=== PATIENT | female | born 1965 | race Caucasian/White ===

== ENCOUNTER → 2016-11-17 | Outpatient (CLI) | payer OTHER ==
--- NOTE | 2016-11-18 07:12 | MM ---
Reason for exam: additional evaluation requested from prior study. Last mammogram was performed 1 year ago. History: Patient had first child at age 37. Family history of breast cancer in aunt at age 60. Left U/S Cancelled VAD Biopsy of both breasts, June 09, 2013. Cyst aspiration, May 2012. Benign cyst aspiration of the left breast, March 2012. Benign cyst aspiration of the left breast, May 2011. Physical Findings: Nurse Summary: 3cm nodule in the right breast at 9-12 o'clock and a 3cm nodule in the left breast at 12-3 o'clock (nurse mm). MG 3D Diag Mammo W/Cad SHON Bilateral CC and MLO view(s) were taken. Prior study comparison: November 11, 2015, bilateral MG 3d screening mammo w/cad. September 26, 2014, bilateral MG diagnostic mammo w CAD SHON. The breast tissue is extremely dense which could obscure a lesion on mammography. No suspicious calcifications are seen. Waxing and waning cysts seen bilateral. These results were verbally communicated with the patient and result sheet given to the patient on 11/17/16. ASSESSMENT: Benign, BI-RAD 2 RECOMMENDATION: Routine screening mammogram of both breasts in 1 year. Manage patient on a clinical basis.
== END | disposition home or self-care (01) ==
LOC: RADMAMWWP 15:32
PROVIDERS: ATTEND Surgery
DX: R92.8 Other abnormal and inconclusive findings on diagnostic imaging of breast (principal)
CPT/HCPCS: G0204; G0279

== ENCOUNTER → 2017-12-15 | Outpatient (CLI) | payer BC ==
[2017-12-15 11:45] VITALS: BP 141/92; PULSE 68; RESP 16
--- NOTE | 2017-12-16 07:40 | P.PN ---
Subjective Progress Note Date: 12/15/17 This is 52 years old female, with a history of severe neck pain with radiation to the right upper extremity, started October 2017, without any initiating event, the pain is constant and increases with any activity or neck movement, associated with numbness and tingling sensation in the right upper extremities, she was seen by her primary care , and she was started on Medrol pack, and baclofen 10 mg 3 times a day, naproxen to 220 mg twice a day, she continued to have severe neck pain with radiation into the right upper extremity, he denies any motor or sensory deficits, she denies any fever or night sweats, she denies any change in bowel movements or urination, patient had similar episode of pain and numbness in the upper extremity 2 years ago, and we have done cervical epidural steroid injection and she had excellent pain relief until october 2017 Objective - Vital Signs Vital signs: Vital Signs Temp Pulse 68 12/15/17 11:31 Resp 16 12/15/17 11:31 BP 141/92 12/15/17 11:31 Pulse Ox 99 12/15/17 11:31 Intake & Output 12/15/17 12/16/17 12/16/17 18:59 06:59 18:59 Weight 58.967 kg - Exam Physical Examinations : 1-Constitutiona : Cooperative , not in acute distress . 2-HEENT : nech ; supple , no Lymphadenopathy , normal thyroid size . eyes : no ptosis , no icterus, no photophobia . 3- neurologic : Cranial nerve II to XII intact , no focal neurological deffecit . 4-psychatric : alert , oriented X 3 , appropriate affect , intact judgment and insight . 5-Lymphatic : no Lymphadenopathy . 6- musculoskeltal : cervical spine = motor stregnth in the deltoid and biceps, motor stregnth biceps and the wrist extensors (C6) . motor stregnth in the triceps muscle . deep tendon reflexes normal at the biceps , normal at Brachioradialis , normal at the Triceps positive cervical facet loading test Normal sensation in the upper extremities Multiple trigger points identified in the right side cervical area. , Lumber spine = normal moter stegnth lower extremities ,thigh and legs .5/5 Assessment and Plan Assessment: Assessment and plan=1-cervical radiculopathy, 2-cervical degenerative disc disease 3-myofascial pain syndrome and cervical paravertebral muscles. Patient could benefit from cervical epidural steroid injections under fluoroscopy guidance and the same time we could do also trigger point injections, procedure risk and benefits and alternatives discussed with the patient, and she agreed with the preceding, patient should continue her current medication naproxen and baclofen and she is getting prescription refills from her primary care. Time with Patient: Less than 30
== END | disposition home or self-care (01) ==
LOC: PNWHC3 11:22
PROVIDERS: ATTEND Specialist
DX: M50.10 Cervical disc disorder with radiculopathy, unspecified cervical region (principal); M79.1 Myalgia; Z79.1 Long term (current) use of non-steroidal anti-inflammatories (NSAID); Z79.899 Other long term (current) drug therapy
CPT/HCPCS: 99211

== ENCOUNTER 2017-12-29 07:09 | Day surgery (SDC) | payer BC ==
[2017-12-28 08:43] VITALS: BMI 23.6
[~2017-12-29 07:09] MED LIST: LACTATED RINGERS 1,000 ML IV SCH
[2017-12-29 07:39] VITALS: RESP 18; TEMP 99.2
[2017-12-29] MEDS ORDERED: LIDOCAINE 1% 20 ML VIAL (10MG/ML) FOR IV START INTRADERMA ONE (07:40)
[2017-12-29] MEDS ORDERED: LACTATED RINGERS 1,000 ML IV ONE (07:40)
--- NOTE | 2017-12-29 08:27 | P.PCN ---
Date of Procedure: 12/29/17 Preoperative Diagnosis: Right cervical radiculopathy Postoperative Diagnosis: Same as above Procedure(s) Performed: Cervical epidural steroid injection under fluoroscopic guidance Anesthesia: MAC ( Local with IV moderate conscious sedation) Surgeon: Nikole Wild Description of Procedure: PROCEDURE INDICATION: The patient with neck pain and radiculitis unresponsive to conservative treatment consents for procedure. PROCEDURE DESCRIPTION / TECHNIQUE: The patient was seen and identified in the preoperative area. Risks, benefits, complications, including but not limited to infections ,bleeding , allergic reactions to the medications ,and not coplete pain releife, and alternatives were discussed with the patient, the patient agreed to proceed with the procedure and signed the consent. Patient was taken to the OR and time out was completed. The patient was placed in the prone position on the procedure table. A pillow was placed under the patients chest to increase the flexion of the cervical spine . The cervical area was prepped and draped in the usual sterile fashion. Vital signs were closely monitored during the procedure. Conscious sedation was used during the procedure to decrease patients anxiety. Using anterior-posterior fluoroscopy, the C7-T1 interlaminar space was identified and the skin over this site was marked and then infiltrated with 1% lidocaine subcutaneously. Subsequently, a 20-gauge 3-1/2-inch Tuohy epidural needle was inserted and advanced toward the epidural space in the right paramedian approach by means of loss of resistance to air technique and guided by AP and lateral fluoroscopy. The correct needle position in the epidural space was verified with the injection of 1 mL of the water soluble contrast dye Isovue-180 and observing an excellent epidurogram with the epidural spread of the dye, after negative aspiration for blood and CSF and in the absence of paresthesias. Again after negative aspiration, a 4 ml mixture containing 10 mg of Decadron and 3 ml of preservative free Normal Saline solution was injected and a washout of epidurogram was seen. Needle was withdrawn intact, skin was cleansed, and bandages were applied.
[2017-12-29] MEDS ORDERED: IV FLUID CONTINUATION 1,000 ML IV ONE (08:31)
[2017-12-29] MEDS ORDERED: KETOROLAC 30 MG/ML 1 ML VIAL IVP STA (08:46)
--- NOTE | 2017-12-29 09:03 | FL ---
Fluoroscopy HISTORY: Pain 7 seconds fluoroscopy time supplied to the referring clinician. 1 intraoperative C-arm image documen ts the procedure. See dictated report from anesthesia.
[2017-12-29 09:19] VITALS: BP 112/67; PULSE 60
== END 2017-12-29 09:33 | disposition home or self-care (01) ==
LOC: ORPAIN 07:09
PROVIDERS: ATTEND Anesthesiology
DX: M50.10 Cervical disc disorder with radiculopathy, unspecified cervical region (principal); M79.1 Myalgia; Z79.1 Long term (current) use of non-steroidal anti-inflammatories (NSAID); Z79.52 Long term (current) use of systemic steroids; Z79.899 Other long term (current) drug therapy
CPT/HCPCS: 62321; 81025

== ENCOUNTER 2018-01-26 06:10 | Day surgery (SDC) | payer BC ==
[2018-01-25 08:38] VITALS: BMI 23.6
[2018-01-26] MEDS ORDERED: LACTATED RINGERS 1,000 ML IV ONE ×3 (06:54→08:02)
[2018-01-26] MEDS ORDERED: LIDOCAINE 1% 20 ML VIAL (10MG/ML) FOR IV START INTRADERMA ONE (06:54)
[2018-01-26] MEDS ORDERED: LACTATED RINGERS 1,000 ML IV SCH (07:00)
[2018-01-26 07:04] VITALS: TEMP 98
--- NOTE | 2018-01-26 08:02 | FL ---
EXAMINATION TYPE: FL guided pain mgmt statistic DATE OF EXAM: 01/26/2018 HISTORY: Pain 4sec fluoro time,1 image scanned
[2018-01-26 08:18] VITALS: PULSE 80
[2018-01-26 08:30] VITALS: BP 120/70; RESP 18
--- NOTE | 2018-01-26 11:31 | P.PCN ---
Date of Procedure: 01/26/18 Procedure(s) Performed: . PROCEDURE 1. Cervical epidural steroid injection under fluoroscopic guidance, C7-T1 2. Cervical epidurogram. 3. Trigger point injection in the cervical paravertebral muscles total of 4 trigger points injected on the right side cervical paravertebral muscles PREOPERATIVE DIAGNOSIS: 1- Cervical Degenerative Disc Diseases 2- Cervical radiculopathy., 3-myofascial pain syndrome and cervical area POSTOPERATIVE DIAGNOSIS: : 1- Cervical Degenerative Disc Diseases , 2- Cervical radiculopathy. 3-myofascial pain syndrome and cervical area ANESTHESIA: Local anesthesia with 1% lidocaine 2 ml , and IV sedation with Versed 2 mg and Fentanyl 100 mcg. EBL 0 PROCEDURE INDICATION: The patient with neck pain and radiculitis unresponsive to conservative treatment consents for procedure. PROCEDURE DESCRIPTION / TECHNIQUE: The patient was seen and identified in the preoperative area. Risks, benefits, complications, including but not limited to infections ,bleeding , allergic reactions to the medications ,and not complete pain releife, and alternatives were discussed with the patient, the patient agreed to proceed with the procedure and signed the consent. Patient was taken to the OR and time out was completed. The patient was placed in the prone position on the procedure table. A pillow was placed under the patients chest to increase the cervical interlaminar space. The cervical area was prepped and draped in the usual sterile fashion. Vital signs were closely monitored during the procedure. Conscious sedation was used during the procedure to decrease patients anxiety. Using anterior-posterior fluoroscopy, the C7-T1 interlaminar space was identified and the skin over this site was marked and then infiltrated with 1% lidocaine subcutaneously. Subsequently, a 20-gauge 3-1/2-inch Tuohy epidural needle was inserted and advanced toward the epidural space by means of the `` hanging-drop technique and guided by AP and lateral fluoroscopy. The correct needle position in the epidural space was verified with the injection of 2 mL of the water soluble contrast dye Isovue-200 and observing an excellent epidurogram with the epidural spread of the dye, after negative aspiration for blood and CSF and in the absence of paresthesias. Again after negative aspiration, mixture containing 20 mg Dexamethasone and 2 ml of preservative- free normal saline injected and a washout of epidurogram was seen. Needle was withdrawn intact, Then after that the trigger point which was marked in the preop holding area , each of the trigger point injected with Marcaine 0.5% using 25 gauge needle , injections and after negative aspiration and there was no paresthesia during the injection , total of 4 trigger points injected in the right side cervical paravertebral muscles ,then after that the skin was cleansed, and bandages were applied. Complications= none. Disposition= patient was placed in supine position and transferred to the recovery room area in stable condition and there was no evidence of upper or lower extremity motor or sensory deficit after the procedure patient was discharged from recovery room after discharge criteria met and home discharge instructions was given by the staff and patient will follow with the pain clinic in 2-4 weeks
== END 2018-01-26 08:46 | disposition home or self-care (01) ==
LOC: ORPAIN 06:10
PROVIDERS: ATTEND Specialist
DX: M50.13 Cervical disc disorder with radiculopathy, cervicothoracic region (principal); M79.1 Myalgia; J45.909 Unspecified asthma, uncomplicated; E07.9 Disorder of thyroid, unspecified
CPT/HCPCS: 81025; 62321; 20553; J2250; J1100; J3010; Q9966; 99152

== ENCOUNTER → 2018-02-22 | Outpatient (CLI) | payer BC ==
--- NOTE | 2018-02-23 11:59 | MM ---
Reason for exam: screening (asymptomatic). Last mammogram was performed 1 year and 3 months ago. History: Patient had first child at age 37. Family history of breast cancer in aunt at age 60. Left U/S Cancelled VAD Biopsy of both breasts, June 09, 2013. Cyst aspiration, May 2012. Benign cyst aspiration of the left breast, March 2012. Benign cyst aspiration of the left breast, May 2011. Physical Findings: A clinical breast exam by your physician is recommended on an annual basis and results should be correlated with mammographic findings. MG 3D Screening Mammo W/Cad Bilateral CC and MLO view(s) were taken. Prior study comparison: November 17, 2016, bilateral MG 3d diag mammo w/cad SHON. November 11, 2015, bilateral MG 3d screening mammo w/cad. The breast tissue is extremely dense which could obscure a lesion on mammography. Finding: There are multiple typically benign circumscribed round, oval masses waxing and waning over priors most compatible with benign cysts. No suspicious abnormality. ASSESSMENT: Benign, BI-RAD 2 RECOMMENDATION: Routine screening mammogram of both breasts in 1 year.
== END | disposition home or self-care (01) ==
LOC: RADMAMWWP 06:53
PROVIDERS: ATTEND Obstetrics & Gynecology
DX: Z12.31 Encounter for screening mammogram for malignant neoplasm of breast (principal)
CPT/HCPCS: 77063; 77067

== ENCOUNTER → 2018-02-25 | Outpatient (CLI) | payer BC ==
[2018-02-25 08:08] LABS: Basophils % (A) 1 %; Eosinophils # (A) 0.1 k/uL (0-0.7); Eosinophils % (A) 2 %; HGB 14.7 gm/dL (11.4-16.0); Lymphocytes % (A) 31 %; MCH 28.1 pg (25.0-35.0); MCV 87.9 fL (80.0-100.0); Mean Platelet Volume 8.2; Monocytes # (A) 0.4 k/uL (0-1.0); Monocytes % (A) 7 %; Neutrophils # (A) 3.6 k/uL (1.3-7.7); Neutrophils % (A) 57 %; Platelet Count 225 k/uL (150-450); RBC 5.24 m/uL (3.80-5.40); RDW 12.8 % (11.5-15.5); WBC 6.4 k/uL (3.8-10.6)
[2018-02-25 08:15] LABS: ALT 25 U/L (9-52); AST 16 U/L (14-36); Albumin 4.4 g/dL (3.5-5.0); Alkaline Phosphatase 67 U/L (38-126); Anion Gap 13 mmol/L; Blood Urea Nitrogen 21 mg/dL (7-17); Calcium 9.6 mg/dL (8.4-10.2); Carbon Dioxide 25 mmol/L (22-30); Chloride 103 mmol/L (98-107); Cholesterol 175 mg/dL (<200); Glucose 96 mg/dL (74-99); HDL Cholesterol 79 mg/dL (40-60); LDL Cholesterol,Calculated 85 mg/dL (0-99); Potassium 4.2 mmol/L (3.5-5.1); Sodium 141 mmol/L (137-145); Total Bilirubin 0.7 mg/dL (0.2-1.3); Total Protein 7.1 g/dL (6.3-8.2); Triglycerides 56 mg/dL (<150)
[2018-02-25 08:31] LABS: T4, Free (Free Thyroxine) 1.45 ng/dL (0.78-2.19)
== END | disposition home or self-care (01) ==
LOC: LABWHC1 07:55
PROVIDERS: ATTEND Internal Medicine
DX: Z00.00 Encounter for general adult medical examination without abnormal findings (principal); E03.9 Hypothyroidism, unspecified; Z13.220 Encounter for screening for lipoid disorders
CPT/HCPCS: 36415; 80053; 80061; 84439; 84443; 85025

== ENCOUNTER → 2018-04-18 | Outpatient (CLI) | payer BC | END | disposition home or self-care (01) | LOC: LABWHC1 07:08 | PROVIDERS: ATTEND Internal Medicine | DX: E03.9 Hypothyroidism, unspecified (principal) | CPT/HCPCS: 36415; 84443 ==

== ENCOUNTER → 2019-01-16 | Outpatient (CLI) | payer BC ==
[2019-01-16 14:10] VITALS: BP 133/88; PULSE 93; RESP 16
--- NOTE | 2019-01-16 14:29 | P.PN ---
Progress Note - Text Progress Note Date: 01/16/19 Jazmine is a very pleasant 53-year-old female who presents for follow-up visit with chief complaint of neck pain and radiating pain into her upper extremities. She also has complaints of low back pain with radiating pain down the back of her right leg. She had epidural steroid injections of the cervical spine in the past with good relief. She's noticed return of her symptoms over the past 3-4 months. They're not as intense as before however she does complain of radiating pain from her neck into her right arm in her triceps area as well as into her fingers intermittently. She denies any significant motor deficits in upper extremities. She denies any ambulatory issues. With regards to her low back pain, she has noted pain down the back of her right leg for some time now. Does not recall any inciting incident. Pain is a 6 out of 10 in severity she d escribes frequent radiating pain down her right buttock and back of her calf muscle. She's noticed some weakness in her right lower extremity over the past 6 months. She denies any bowel or bladder incontinence. In addition to above, 13-point review of systems is also negative for chest pain, shortness of breath, changes in vision, changes in hearing, new onset weakness, abdominal pain, diarrhea, extreme fatigue, malaise, fever, skin changes, homicidal or suicidal ideation, or bowel or bladder incontinence. Vital Signs: Reviewed in EMR Gen: WDWN, AAOx3, NAD HEENT: NCAT, EOMI, hearing grossly normal Pulm: resp unlabored Abd: soft, NT, ND Neck: supple, trachea midline ROM in flexion lumbar spine: reducedSecondary to pain. ROM in extension lumbar spine: Pain with flexion Lumbar paravertebral tenderness: + Facet loading: + bilateral, R >> L SI joint tenderness: Negative bilaterally Moe's test: Negative bilaterally Straight leg raise: + + Right at 30 Neuro: CN II-XII grossly intact, muscle strength lower extremities PRESERVED Imaging: Reviewed in EMR Assessment: 1. Cervical radiculopathy 2. Cervical spondylosis without myelopathy 3. Lumbar spondylosis without myelopathy 4. Lumbar radiculopathy Plan: 1. Explanation: Opioid and psychological risk scores were reviewed. Diagnoses, prognoses, and multiple treatment options including but not limited to physical therapy, interventional therapies, adjuvant medical therapies, narcotic medication therapies, and surgery were discussed with the patient and all questions were answered to the patient's satisfaction. 2. Opioid agreement: Patient has previously signed narcotic agreement, and was orally counseled to not overuse, abuse, divert, or cell medications, and to take them as prescribed by only 1 healthcare provider. The patient was also counseled to store opioid medications in a safe and preferably locked location. Patient was also counseled against driving or operating heavy equipment while using narcotic medications and also to not use alcohol or any illicit or recreational drugs. The patient verbalized understanding that lack of compliance with any of the above and likely result in failure to renew narcotic prescriptions, possible discharge from the clinic, and possible legal ramifications thereafter if indicated. 3. Counseling: The patient was counseled extensively on exercise. Specifically, the patient was instructed regarding the importance of weight control, and exercise in the context of both chronic pain and overall health. 4. Procedures: Like to proceed with a cervical epidural steroid injection after reviewing the MRI. 5. Consultations: None for now, possible referral to an orthopedic forestry extension specialist in the future. 6. Investigations: MRI orders given. 7. Medications: No medications prescribed. 8. Disposition: MRI lumbar spine and cervical spine to assess for weakness in the upper and lower shoddy's. PQRS measures: 1-Patient's medications are documented in the chart. 2-Tobacco use is negative 3-Patient has not had a pneumococcal vaccine. 4-Advanced care planning discussed, patient unable to give. 5-Opioid contract signed with the patient. 6-Pain positive, follow-up visit or procedure scheduled 7-Patient's blood pressure measured and documented, and patient will follow up with the primary care due to hypertension. 8-Patient's weight was measured, and body mass index is within normal limits, and counseling was done. Patient instructed to follow up with PCP. 9-Patient WAS NOT identified as an unhealthy alcohol user.
== END | disposition home or self-care (01) ==
LOC: PNWHC3 12:20
PROVIDERS: ATTEND Anesthesiology
DX: M47.22 Other spondylosis with radiculopathy, cervical region (principal); M47.26 Other spondylosis with radiculopathy, lumbar region
CPT/HCPCS: 99211

== ENCOUNTER → 2019-02-13 | Outpatient (CLI) | payer BC ==
[2019-02-13 14:55] VITALS: BP 153/105; PULSE 72; RESP 16
--- NOTE | 2019-02-13 15:03 | P.PN ---
Subjective Progress Note Date: 02/13/19 Jazmine is a 54-year-old female presents today as a follow-up for neck and low back pain. Her last visit here she continues to complain of back pain in right sided low back pain with radicular symptoms down the legs. She continues to have right-sided radicular symptoms going down her right arm. The pain is associated with movements of the right neck. She has sharp shooting pain along with numbness down her right arm when she turns her head to the right or looks back. She has numbness in both arms mostly on the right when she wakes up in the morning. She reports that any elevation of the neck on any pillow increases her numbness and tingling down her arms. She denies any lower extremity weakne ss, she denies any bowel or bladder incontinence. She does have right-sided radicular symptoms in her low lumbar spine shooting down the back of her leg to about the back of the knee. She is not using any scheduled medications at this time. Objective - Exam General: Awake and alert oriented 3 no distress Respiratory exam: No audible wheezing no accessory muscle usage Cardiovascular exam: regular rate, palpable bilateral pulses, no lower extremity edema Abdominal exam: No distention nontender to palpation Cervical spine: Normal alignment, tender to palpation over the right paraspinal muscles. Spurling's is positive on the right. Facet loading is negative. Checkroom Chief strength is 4-5 in the right compared to 5 out of 5 on the left. Pincer grasp is normal bilaterally. There is weakness in the medial 2 fingers compared to the lateral 3 fingers correlating to a C7 or C8 radiculopathy. Lumbar spine: Lumbar lordosis is preserved. There is nontender to palpation over the paraspinal muscles. Straight leg raise is positive on the right and above 45. Sacroiliac joints: Nontender to palpation, VIVIANA is negative, Gaenselon negative Neuro exam: Normal sensation in bilateral upper extremities, deep tendon reflexes are 1+ on the right compared to 2+ on the left. Moreno's is negative on both arms Normal sensation in bilateral lower extremities. Deep tendon reflexes are 2+ in lower extremities Psych exam: Cooperative, appropriate mood Assessment and Plan Assessment: #1 cervical spondylosis without myelopathy #2 cervical radiculopathy #3 lumbar radiculopathy Plan: After examination of the patient and discussion with the patient she prefers not to have the MRI done at this time. After examining the patient and her Viviane's is negative and I'm not really concerned of over spinal cord compression. MRI would be helpful if available. I do not believe that it is necessary prior to proceeding to a cervical epidural at this time. She has classic cervical radiculopathy likely at the C7 and C8 dermatomes. At this point I believe proceeding with cervical epidural at the C7-T1 level with paraspinal trigger points on the right side may offer the best relief. I discussed with patient the reasoning behind this and she is in complete agreement. She really does not want to have an MRI done at this time. We'll schedule for cervical epidural steroid injection and trigger point injections as possible after we do this we will follow-up with her regarding her low back pain and right lower extremity radiculopathy
== END ==
LOC: PNWHC3 14:27
PROVIDERS: ATTEND Hospitalist
DX: M47.22 Other spondylosis with radiculopathy, cervical region (principal)
CPT/HCPCS: 99211

== ENCOUNTER → 2019-02-23 | Outpatient (CLI) | payer BC ==
--- NOTE | 2019-02-24 13:27 | MM ---
Reason for exam: screening (asymptomatic). Last mammogram was performed 1 year ago. History: Patient had first child at age 37. Family history of breast cancer in aunt at age 60. Left U/S Cancelled VAD Biopsy of both breasts, June 09, 2013. Cyst aspiration, May 2012. Benign cyst aspiration of the left breast, March 2012. Benign cyst aspiration of the left breast, May 2011. Physical Findings: A clinical breast exam by your physician is recommended on an annual basis and results should be correlated with mammographic findings. MG 3D Screening Mammo W/Cad Bilateral CC and MLO view(s) were taken. Prior study comparison: February 22, 2018, bilateral MG 3d screening mammo w/cad. November 17, 2016, bilateral MG 3d diag mammo w/cad SHON. The breast tissue is extremely dense which could obscure a lesion on mammography. Stable benign calcifications. There is chronic nodularity bilaterally. There is no dominant lesion. No significant changes when compared with prior studies. ASSESSMENT: Benign, BI-RAD 2 RECOMMENDATION: Routine screening mammogram of both breasts in 1 year.
== END | disposition home or self-care (01) ==
LOC: RADMAMWWP 07:16
PROVIDERS: ATTEND Obstetrics & Gynecology
DX: Z12.31 Encounter for screening mammogram for malignant neoplasm of breast (principal)
CPT/HCPCS: 77063; 77067

== ENCOUNTER 2019-03-06 06:48 | Day surgery (SDC) | payer BC ==
[2019-03-02 08:41] VITALS: BMI 24.5
[2019-03-06 07:21] VITALS: TEMP 98.5
[2019-03-06] MEDS ORDERED: LIDOCAINE 1% 20 ML VIAL (10MG/ML) FOR IV START INTRADERMA ONE (07:25)
--- NOTE | 2019-03-06 08:36 | P.PCN ---
Date of Procedure: 03/06/19 Procedure(s) Performed: Procedure= 1. Cervical epidural steroid injection under fluoroscopic guidance, C7-T1 2. Cervical epidurogram. 3. Trigger point injection in the cervical paravertebral muscles total of 2 trigger points injected on the right side trapezius and rhomboid muscles PREOPERATIVE DIAGNOSIS: 1- Cervical Degenerative Disc Diseases 2- Cervical radiculopathy., 3-myofascial pain syndrome and cervical area POSTOPERATIVE DIAGNOSIS: : 1- Cervical Degenerative Disc Diseases , 2- Cervical radiculopathy. 3-myofascial pain syndrome and cervical area ANESTHESIA: Local anesthesia with 1% lidocaine 2 ml , and IV sedation with Versed 1 mg and Fentanyl 50 mcg. EBL 0 PROCEDURE INDICATION: The patient with neck pain and radiculitis unresponsive to conservative treatment consents for procedure. PROCEDURE DESCRIPTION / TECHNIQUE: The patient was seen and identified in the preoperative area. Risks, benefits, complications, including but not limited to infections ,bleeding , allergic reactions to the medications ,and not complete pain releife, and alternatives were discussed with the patient, the patient agreed to proceed with the procedure and signed the consent. Patient was taken to the OR and time out was completed. The patient was placed in the prone position on the procedure table. A pillow was placed under the patients chest to increase the cervical interlaminar space. The cervical area was prepped and draped in the usual sterile fashion. Vital signs were closely monitored during the procedure. Conscious sedation was used during the procedure to decrease patients anxiety. Using anterior-posterior fluoroscopy, the C7-T1 interlaminar space was identified and the skin over this site was marked and then infiltrated with 1% lidocaine subcutaneously. Subsequently, a 20-gauge 3-1/2-inch Tuohy epidural needle was inserted and advanced toward the epidural space by means of the ``hanging-drop technique and guided by AP and lateral fluoroscopy. The correct needle position in the epidural space was verified with the injection of 2 mL of the water soluble contrast dye Isovue-200 and observing an excellent epidurogram with the epidural spread of the dye, after negative aspiration for blood and CSF and in the absence of paresthesias. Again after negative aspiration, mixture containing 20 mg Dexamethasone ,and 2 ml of preservative-free normal saline injected and a washout of epidurogram was seen. Needle was withdrawn intact, Then after that the trigger point which was marked in the preop holding area , each of the trigger point injected with Marcaine 0.5% using 25 gauge needle , injections and after negative aspiration and there was no paresthesia during the injection , total of 2 trigger points injected in the right side trapezius and rhomboid muscles ,then after that the skin was cleansed, and bandages were applied. Complications= none. Disposition= patient was placed in supine position and transferred to the recovery room area in stable condition and there was no evidence of upper or lower extremity motor or sensory deficit after the procedure patient was discharged from recovery room after discharge criteria met and home discharge instructions was given by the staff and patient will follow with the pain clinic in 2-4 weeks
[2019-03-06] MEDS ORDERED: IV FLUID CONTINUATION 650 ML IV ONE (08:42)
--- NOTE | 2019-03-06 08:46 | FL ---
EXAMINATION TYPE: FL guided pain mgmt statistic DATE OF EXAM: 03/06/2019 CLINICAL HISTORY: Neck pain. TECHNIQUE: Fluoroscopy. COMPARISON: None. FINDINGS: Fluoroscopic guidance was provided during pain relief procedure performed by Dr. St . A total of 3 seconds of fluoroscopic time was utilized during the procedure and single spot fluoro scopic intraoperative image is acquired. Single image acquired shows needle localization near cervic othoracic junction. IMPRESSION: As Above.
[2019-03-06 09:12] VITALS: BP 107/67; PULSE 74; RESP 18
== END 2019-03-06 09:19 | disposition home or self-care (01) ==
LOC: ORPAIN 06:48
PROVIDERS: ATTEND Specialist
DX: M50.10 Cervical disc disorder with radiculopathy, unspecified cervical region (principal); M79.18 Myalgia, other site; Z88.2 Allergy status to sulfonamides
CPT/HCPCS: 81025; 20552; 62321; J2250; J1100; J3010; Q9966

== ENCOUNTER 2019-03-30 06:24 | Day surgery (SDC) | payer BC ==
[2019-03-29 09:56] VITALS: BMI 24.7
[2019-03-30 06:48] VITALS: RESP 16; TEMP 98.4
[2019-03-30] MEDS ORDERED: LIDOCAINE 1% 20 ML VIAL (10MG/ML) FOR IV START INTRADERMA ONE (06:55)
[2019-03-30] MEDS ORDERED: IV FLUID CONTINUATION 1,000 ML IV ONE (08:02)
--- NOTE | 2019-03-30 08:03 | P.PCN ---
Date of Procedure: 03/30/19 Procedure(s) Performed: PROCEDURE 1. Cervical epidural steroid injection under fluoroscopic guidance, C7-T1 2. Cervical epidurogram. 3. Trigger point injections right side rhomboid muscles and suprascapular muscles (total of 2 trigger point injected ) PREOPERATIVE DIAGNOSIS: 1- Cervical Degenerative Disc Diseases 2- Cervical radiculopathy., 3-myofascial pain syndrome cervical paraspinal muscles and suprascapular muscles POSTOPERATIVE DIAGNOSIS: : 1- Cervical Degenerative Disc Diseases , 2- Cervical radiculopathy. 3-myofascial pain syndrome and cervical paraspinal muscles and suprascapular muscles ANESTHESIA: Moderate sedation with Versed 1 mg and Fentanyl 50 mcg. EBL 0 PROCEDURE INDICATION: The patient with neck pain and radiculitis unresponsive to conservative treatment consents for procedure. PROCEDURE DESCRIPTION / TECHNIQUE: The patient was seen and identified in the preoperative area. Risks, benefits, complications, including but not limited to infections ,bleeding , allergic reactions to the medications ,and not coplete pain releife, and alternatives were discussed with the patient, the patient agreed to proceed with the procedure and signed the consent. Patient was taken to the OR and time out was completed. The patient was placed in the prone position on the procedure table. A pillow was placed under the patients chest to increase the cervical interlaminar space. The cervical area was prepped and draped in the usual sterile fashion. Vital signs were closely monitored during the procedure. Conscious sedation was used during the procedure to decrease patients anxiety. Using anterior-posterior fluoroscopy, the C7-T1 interlaminar space was identified and the skin over this site was marked and then infiltrated with 1% lidocaine subcutaneously. Subsequently, a 20-gauge 3-1/2-inch Tuohy epidural needle was inserted and advanced toward the epidural space by means of the hanging-drop technique and guided by AP and lateral fluoroscopy. The correct needle position in the epidural space was verified with the injection of 2 mL of the water soluble contrast dye Isovue-180 and observing an excellent epidurogram with the epidural spread of the dye, after negative aspiration for blood and CSF and in the absence of paresthesias. Again after negative aspiration, a 4 ml mixture containing 20 mg Dexamethason , and 2 ml of 1% preservative-free lidocaine,the solution was injected and a washout of epidurogram was seen. Needle was withdrawn intact, Then after that the trigger point injection done in sterile technique,the trigger point was identified in the preoperative holding area on the right side rhomboid , and a right suprascapular muscles on the right , a 25-gauge needle the trigger point injected with Ropivacaine 0.5% 2 mL injected after aspiration and there was no paresthesia during the injection patient tolerated the procedure well without any complications skin was cleansed, and bandages were applied. Complications= none. Disposition= patient was placed in supine position and transferred to the [facility] room area in stable condition and there was no evidence of upper or lower extremity motor or sensory deficit after the procedure patient was discharged from recovery room after discharge criteria met and home discharge instructions was given by the staff and patient will follow with the pain clinic in 2-4 weeks
--- NOTE | 2019-03-30 08:07 | FL ---
EXAMINATION TYPE: FL guided pain mgmt statistic DATE OF EXAM: 03/30/2019 CLINICAL HISTORY: Neck pain. TECHNIQUE: Fluoroscopy. COMPARISON: None. FINDINGS: Fluoroscopic guidance was provided during pain relief procedure performed by Dr. St . A total of 4 seconds of fluoroscopic time was utilized during the procedure and 1 spot images are acquired. Images acquired shows needle localization of the cervical spine. IMPRESSION: As Above.
[2019-03-30] MEDS ORDERED: KETOROLAC 30 MG/ML 1 ML VIAL IVP ONE (08:21)
[2019-03-30 08:49] VITALS: BP 102/67; PULSE 58
== END 2019-03-30 09:08 | disposition home or self-care (01) ==
LOC: ORPAIN 06:24
PROVIDERS: ATTEND Specialist
DX: M50.10 Cervical disc disorder with radiculopathy, unspecified cervical region (principal); M79.18 Myalgia, other site; E03.9 Hypothyroidism, unspecified; Z88.2 Allergy status to sulfonamides
CPT/HCPCS: 81025; 20552; 62321; J2250; J1100; J3010; J1885; Q9966; 99152

== ENCOUNTER → 2019-04-24 | Outpatient (CLI) | payer BC ==
[2019-04-24 14:24] VITALS: BP 127/88; PULSE 76; RESP 16
== END ==
LOC: PNWHC3 14:08
PROVIDERS: ATTEND Specialist
DX: M48.02 Spinal stenosis, cervical region (principal); M54.12 Radiculopathy, cervical region; Z79.899 Other long term (current) drug therapy
CPT/HCPCS: 99211

== ENCOUNTER → 2019-04-24 | Outpatient (CLI) | payer BC ==
[2019-04-24 08:27] LABS: Basophils # (A) 0.1 k/uL (0-0.2); Basophils % (A) 1 %; Eosinophils # (A) 0.1 k/uL (0-0.7); Eosinophils % (A) 2 %; HCT 41.8 % (34.0-46.0); HGB 13.5 gm/dL (11.4-16.0); Lymphocytes # (A) 1.7 k/uL (1.0-4.8); Lymphocytes % (A) 31 %; MCH 27.9 pg (25.0-35.0); MCHC 32.2 g/dL (31.0-37.0); MCV 86.9 fL (80.0-100.0); Mean Platelet Volume 8.3; Monocytes # (A) 0.3 k/uL (0-1.0); Monocytes % (A) 5 %; Neutrophils # (A) 3.2 k/uL (1.3-7.7); Neutrophils % (A) 59 %; Platelet Count 203 k/uL (150-450); RBC 4.82 m/uL (3.80-5.40); RDW 13.8 % (11.5-15.5); WBC 5.5 k/uL (3.8-10.6)
--- NOTE | 2019-04-24 14:50 | P.PAINPG ---
Subjective Progress Note Date: 04/24/19 Jazmine is a 54-year-old female presents today as a follow-up for neck pain. Recently we have done cervical epidural steroid injections 2 She continues to have right-sided radicular symptoms going down her right arm. The pain is associated with movements of the right neck. She has sharp shooting pain along with numbness down her right arm when she turns her head . She has numbness in both arms mostly on the right when she wakes up in the morning. She reports that any elevation of the neck on any pillow increases her numbness and tingling down her arms. She denies any lower extremity weakness, she denies any bowel or bladder incontinence. She does have right-sided radicular symptoms in her low lumbar spine shooting down the back of her leg to about the back of the knee. Physical Examinations : -Constitutiona : Cooperative , not in acute distress . -HEENT : nech ; supple , no Lymphadenopathy , normal thyroid size . eyes : no ptosis , no icterus, no photophobia . ENT : normal of hearing , normal oropharynx , no Thrush . - Respiratory : Chest clear to auscultations Bilaterally , no wheezing , no Rhonchi . - Cardiovascula : regular rate and rhythem , S1 , S2 , no S3 , no S4. - Gastrointestina : abdomen soft no tenderness , bowel sounds , no organomegally . - Genitourinary : Defferred . - neurologic : Cranial nerve II to XII intact , no focal neurological deffecit . -psychatric : alert , oriented X 3 , appropriate affect , intact judgment and insight . -Lymphatic : no Lymphadenopathy . - musculoskeltal : Cervical Spine motor stregnth in the deltoid and biceps, normal right side , normal Left side motor stregnth biceps and the wrist extensors normal right side ,normal left side . motor stregnth in the triceps muscle . normal Right side , normal Left side deep tendon reflexes normal at the biceps , normal at Brachioradialis , normal at triceps. cervical facet loading test negative. Spurling test positive bilaterally. Neck distraction test positive bilaterally. Viviane sign positive bilaterally. Lumber spine moter stegnth lower extremities ,thigh and legs 5/5 Right side , 5/5 Left side MRI of the cervical spine done [address] [place] [address] showed C6 7 and C7-T1 right neuroforaminal narrowing Assessment and plan Cervical radiculopathy Cervical foraminal narrowing Patient continued to have severe neck pain with numbness and tingling sensation in the upper extremity after 2 lumbar epidural steroid injection We will order MRI of the cervical spine without contrast to evaluate if there is any progression of her disease, and also patient will be referred for consultation with a spine surgeon for evaluation for possible decompression Objective - Labs CBC & Chem 7: 04/24/19 08:00 PQRS Measure Charge Sheet Measure #130: Documentation of Current Meds in Medical Chart: Patient's medications documented in chart Measure #226: Tobacco Use: Screen & Cessation Intervention: Pt not a tobacco user Measure #111: Pneumonia Vaccination: Pneumococcal vaccine administered or previously received Measure #47: Advance Care Plan: Advance care planning discussed & documented, pt chose/unable to give Measure #412: Opioid Treatment Agreement: No documentation of signed opioid treatment agreement Measure #408: Opioid Therapy Follow-up Evaluation: Patient had NO f/u eval minimum every 3 months during opioid therapy Measure #317: Preventitive Care & Scrn High Bld Press & F/U: Normal blood pressure, f/u not required Measure #128: Body Mass Index (BMI) Screening & Follow-up: BMI documented within normal parameters Measure #131: Pain Assessment & Follow-up: Pain positive & plan documented, Follow-up scheduled Measure #431: Unhealthy Alcohol Use Preventative Care & Scrn: Patient not identified as an unhealthy alcohol user PQRS Narrative: Smoking Status Never smoker Hx Alcohol Use (MH) Yes: RARE Home Medications: Ambulatory Orders Ergocalciferol [Vitamin D2 (DRISDOL)] 50,000 unit PO Q14D 09/25/15 Levothyroxine Sodium [Synthroid] 125 mcg PO SUTU 09/25/15 Levothyroxine Sodium [Synthroid] 112 mcg PO MOWETHFRSA 10/08/15 Naproxen Sodium [Aleve] 220 mg PO BID PRN 12/15/17 Controlled Substance Measures - Controlled Substance Measures Is patient prescribed a controlled substance at discharge?: No
[2019-04-24 16:49] LABS: ALT 13 U/L (8-44); AST 20 U/L (13-35); African American GFR (CKD) 114.6 (60.0-200.0); Albumin/Globulin Ratio 1.79 (1.60-3.17); Alkaline Phosphatase 63 U/L (41-126); BUN/Creat Ratio 22.86 Ratio (12.00-20.00); Calcium 9.4 mg/dL (8.7-10.3); Carbon Dioxide 24.5 mmol/L (21.6-31.8); Chloride 110 mmol/L (96-109); Cholesterol 186 mg/dL (0-200); Globulin 2.4 g/dL (1.6-3.3); Glucose 89 mg/dL (70-110); Potassium 3.9 mmol/L (3.5-5.5); Sodium 141 mmol/L (135-145); Total Bilirubin 0.6 mg/dL (0.3-1.2); Total Protein 6.7 g/dL (6.2-8.2); Triglycerides <50.0 mg/dL (0.0-149.0); VLDL Calculation 9.98 mg/dL (5.00-40.00)
== END | disposition home or self-care (01) ==
LOC: LABWHC1 07:52
PROVIDERS: ATTEND Internal Medicine Geriatric Medicine
DX: E78.5 Hyperlipidemia, unspecified (principal); E03.9 Hypothyroidism, unspecified; R53.83 Other fatigue
CPT/HCPCS: 36415; 80053; 80061; 82306; 83036; 84439; 84443; 85025

== ENCOUNTER → 2019-05-08 | Outpatient (CLI) | payer BC ==
--- NOTE | 2019-05-08 17:28 | MR ---
EXAMINATION TYPE: MR cervical spine wo con DATE OF EXAM: 05/08/2019 COMPARISON: 10/11/2015 HISTORY: Pain and radiculopathy. TECHNIQUE: Multiplanar, multisequence images of the cervical spine were acquired. C2-C3: Disc desiccation. No disc herniation or canal stenosis. No foraminal encroachment C3-C4: Disc desiccation. No disc herniation or canal stenosis. No foraminal encroachment. C4-C5: Mild degenerative disc disease with central disc bulging and mild effacement of thecal sac. Th ere is facet arthropathy and uncovertebral joint particularly. There is mild right neural foraminal e ncroachment. No nerve root contact identified. C5-C6: Moderate to severe degenerative disc disease with posterior spondylosis, uncovertebral joint h ypertrophy and broad-based disc protrusion. There is severe bilateral foraminal encroachment greater on the right. There is stable mild central canal stenosis. C6-C7: Vertebral body hemangioma C7 with moderate to severe degenerative disc disease. There is a foc al right paracentral disc herniation which abuts the anterior margin the spinal cord and extends para centrally and laterally to the right. There is mild right-sided foraminal encroachment. This is stabl e. C7-T1: Degenerative disc disease. Vertebral body hemangioma of T1. There is uncovertebral joint hyper trophy bilaterally. Right lateral disc bulging is seen on the sagittal image. This may encroach upon the exiting right nerve root. No Canal stenosis. Cervical segments are intact. There is normal alignment. Cervical spinal cord is of normal signal. Craniovertebral junction relationships are within normal limits. IMPRESSION: 1. Multilevel degenerative disc disease with severe changes C5-6 and C6-C7 appears stable. 2. Right paracentral disc herniation C6-C7 abuts the anterior margin of the spinal cord and results i n mild right foraminal encroachment. Findings stable. 3. Central disc protrusion or broad-based herniation C5-C6 abuts the anterior margin of the spinal co rd. Hypertrophic spondylosis contributes to severe bilateral foraminal encroachment greater on the ri ght. 4. Right lateral disc bulging C7-T1 results in right-sided foraminal encroachment and may abut the ex iting nerve root. Findings stable.
== END | disposition home or self-care (01) ==
LOC: RADMRIMAIN 16:34
PROVIDERS: ATTEND Specialist
DX: M50.223 Other cervical disc displacement at C6-C7 level (principal); M50.122 Cervical disc disorder at C5-C6 level with radiculopathy; M50.123 Cervical disc disorder at C6-C7 level with radiculopathy; M50.13 Cervical disc disorder with radiculopathy, cervicothoracic region; M47.812 Spondylosis without myelopathy or radiculopathy, cervical region
CPT/HCPCS: 72141

== ENCOUNTER → 2020-04-15 | Outpatient (CLI) | payer BC ==
--- NOTE | 2020-04-16 13:31 | MM ---
Reason for exam: screening (asymptomatic). Last mammogram was performed 1 year and 2 months ago. History: Patient had first child at age 37. Family history of breast cancer in aunt at age 60. Left U/S Cancelled VAD Biopsy of both breasts, June 09, 2013. Cyst aspiration, May 2012. Benign cyst aspiration of the left breast, March 2012. Benign cyst aspiration of the left breast, May 2011. Physical Findings: A clinical breast exam by your physician is recommended on an annual basis and results should be correlated with mammographic findings. MG 3D Screening Mammo W/Cad Bilateral CC and MLO view(s) were taken. Prior study comparison: February 23, 2019, bilateral MG 3d screening mammo w/cad. February 22, 2018, bilateral MG 3d screening mammo w/cad. The breast tissue is extremely dense which could obscure a lesion on mammography. No significant changes when compared with prior studies. ASSESSMENT: Benign, BI-RAD 2 RECOMMENDATION: Routine screening mammogram of both breasts in 1 year.
== END | disposition home or self-care (01) ==
LOC: RADMAMWWP 07:14
PROVIDERS: ATTEND Obstetrics & Gynecology
DX: Z12.31 Encounter for screening mammogram for malignant neoplasm of breast (principal)
CPT/HCPCS: 77063; 77067

== ENCOUNTER → 2020-12-23 | Outpatient (CLI) | payer BC ==
--- NOTE | 2020-12-23 15:48 | BD ---
EXAMINATION TYPE: Axial Bone Density DATE OF EXAM: 12/23/2020 COMPARISON: NONE CLINICAL HISTORY: Height: 61 IN Weight: 132 LBS RISK FACTORS HISTORY OF: History of Wrist Fracture: YES RIGHT AGE 11 Surgery to Spine: CERVICAL FUSION 2018 Family History of Osteoporosis: YES MOTHER Active: YES Diet low in dairy products/other sources of calcium: YES MEDICATIONS: Thyroid Medications: YES Which medication: Synthroid How Lon YEARS Additional Medications: VIT D 50,000 EVERY TWO WEEKS, SYNTHROID, AMLODIPINE, EXAM MEASUREMENTS: Bone mineral densitometry was performed using the [employer] [facility] System. Bone mineral density as measured about the Lumbar spine is: ----- L1-L4(G/cm2): 1.181 T Score Values are as follows: ----- L2: -0.3 ----- L3: 0.0 ----- L4: 0.7 ----- L1-L4: 0.0 Bone mineral density BASELINE Bone mineral density about the R hip (g/cm2): 0.897 Bone mineral density about the L hip (g/cm2): 0.956 T Score values are as follows: -----R Neck: -1.0 -----L Neck: -0.6 -----R Total: -0.3 -----L Total: -0.3 Bone mineral density BASELINE IMPRESSION: Normal (Values between +1 and -1 indicate normal bone mass). Consider repeating this study in 5 year s or sooner if there is some new clinical indication. NOTE: T-SCORE=SD OF THE YOUNG ADULT MEAN.
== END | disposition home or self-care (01) ==
LOC: RADBDWWP 07:14
PROVIDERS: ATTEND Internal Medicine Geriatric Medicine
DX: M81.0 Age-related osteoporosis without current pathological fracture (principal)
CPT/HCPCS: 77080

== ENCOUNTER → 2020-12-25 | Outpatient (CLI) | payer BC ==
[2020-12-25 08:13] VITALS: BP 123/80; PULSE 83; RESP 16; TEMP 97.5
--- NOTE | 2020-12-25 08:27 | P.PN ---
Subjective Progress Note Date: 12/25/20 This is 55 years old female, was seen previously at [facility] pain clinic, and she had a history of cervical radiculopathy and cervical herniated disc disease, patient had cervical decompression surgery done in 2019, and in October 2020 she started having severe left elbow pain, the pain is localized in the left elbow and increased over time, currently the pain in the left elbow is continuous increased with any activity interfere with her activity of daily livings, the pain is not associated with numbness, she denies any motor or sensory deficit, the pain is not radiated to the neck, the pain is not radiated to the fingers, and it's only in the left elbow area. Objective - Vital Signs Vital signs: Vital Signs Temp 97.5 F L 12/25/20 08:10 Pulse 83 12/25/20 08:10 Resp 16 12/25/20 08:10 BP 123/80 12/25/20 08:10 Pulse Ox 99 12/25/20 08:10 - Exam Physical Examinations : -Constitutiona : Cooperative , not in acute distress . -HEENT : nech : supple , no Lymphadenopathy , normal thyroid size . : eyes : no ptosis , no icterus, no photophobia . - neurologic : Cranial nerve II to XII intact , no focal neurological deffecit . -psychatric : alert , oriented X 3 , appropriate affect , intact judgment and insight . -Lymphatic : no Lymphadenopathy . - musculoskeltal : Cervical Spine motor stregnth in the deltoid and biceps, normal right side , normal Left side motor stregnth biceps and the wrist extensors normal right side ,normal left side . motor stregnth in the triceps muscle . normal Right side , normal Left side deep tendon reflexes normal at the biceps , normal at Brachioradialis , normal at triceps. cervical facet loading test: Negative Bilaterally Left arm= localized tenderness over the lateral aspect of the left elbow Lumber spine moter stegnth lower extremities ,thigh and legs 5/5 Right side , 5/5 Left side Assessment and Plan Plan: Assessment and plan=1- left Tennis Elbow , epicondylitis. Patient could benefit from NSAID , prescription for Voltaren gel given to be applied to the left elbow area twice daily Patient can use Advil twice a day as prescribed, she follow up in the pain clinic in 4 weeks if she continued to have pain will consider steroid injection in the left elbow. - PQRS measures = - Patient's medications are documented in the chart. -Tobacco use is negative and counseling.Given. -Patient's has received pneumococcal vaccine. -Advanced care planning discussed, patient not eligible. -Opiate contract not signed. -Pain positive and follow-up visit/procedure is scheduled. -Patient's blood pressure measured [ 123/80 ] , and documented in the record ,and patient will follow up with the primary care. -Patient's weight was measured and body mass index [24.6 ] within the normal limits and counseling was done. and patient instructed to follow-up with the primary care physician. -Patient was not identified as an unhealthy alcohol user Time with Patient: Less than 30
== END | disposition home or self-care (01) ==
LOC: PNWHC3 07:55
PROVIDERS: ATTEND Specialist
DX: M77.12 Lateral epicondylitis, left elbow (principal); Z79.1 Long term (current) use of non-steroidal anti-inflammatories (NSAID)
CPT/HCPCS: 99211

== ENCOUNTER 2021-01-23 05:59 | Day surgery (SDC) | payer BC ==
[2021-01-22 09:56] VITALS: BMI 24.5
[2021-01-23] MEDS ORDERED: LACTATED RINGERS 1,000 ML IV SCH (06:00)
[2021-01-23 06:19] VITALS: RESP 16; TEMP 98.3
[2021-01-23] MEDS ORDERED: methylPREDNISolone ACETATE 40 MG/ML 1 ML VIAL ONE (06:58)
[2021-01-23] MEDS ORDERED: ROPIVACAINE 5MG/ML 20ML VIAL ONE (06:58)
--- NOTE | 2021-01-23 07:16 | P.PCN ---
Date of Procedure: 01/23/21 Procedure(s) Performed: Procedure= left epicondyle steroid injection Preoperative diagnosis= 1-left epicondylitis Postoperative diagnosis=Same as preop Diagnosis . Complication = none Condition= stable Anesthesia= none . Indication for the procedure= patient complaining of severe left elbow pain , examination was positive for severe tenderness over the left epicondyle and patient diagnosed with left epicondylitis, for this reason, she was good candidate for steroid injection. Description of the procedure= procedure risk and benefits discussed with the patient, including but not limited, risk of infection and bleeding, and ALLERGIC reaction to the medication and not complete pain relief and patient agreed with the preceding patient taken to the operating room, placed in sitting position or standard monitors applied to the patient then after left elbow prepped with chlorhexidine 3 times , using 25-gauge needle, a total of 4 ML of ropivacaine 0.5% mixed with 40 mg of Depo-Medrol injected in the left epicondyle area after negative aspiration patient had no paresthesia during the injection, patient tolerated the procedure well without any complications and she will follow up in the pain clinic in a few weeks
[2021-01-23 07:27] VITALS: BP 111/70; PULSE 74
--- NOTE | 2021-01-27 11:23 | CDI ---
the medial epicondylitis. Outpatient Documentation Clarification Form Date: 01/27/21 CDS/Communications Equipment Installer Name: Sydnie Mccartney Phone: If any questions, call Keyla Kelly, Lease Out Worker at [phone] Patient Name. Jazmine Kurtz Admit date: 01/23/21 Discharge Date: 01/23/21 ATTENTION: The [facility] Coding Staff appreciate you assistance in clarifying documentation. Please respond to the clarification below the line and electronically sign. The [facility] Coding Staff will review the response and follow-up if needed. Please note: Queries are made part of the Legal Health Record. It you have any questions, please contact the Lease Out Worker. Dear Dr. St, Please provide clarification as to the location of the epicondylitis. Just epicondylitis is considered unspecified. Please clarify if the epicondylitis is one of the below: Lateral Medial Thank you for your kind consideration MTDD
== END 2021-01-23 07:28 | disposition home or self-care (01) ==
LOC: ORPAIN 05:59
PROVIDERS: ATTEND Specialist
DX: M77.02 Medial epicondylitis, left elbow (principal); Z88.2 Allergy status to sulfonamides; Z88.8 Allergy status to other drugs, medicaments and biological substances; I10 Essential (primary) hypertension; E03.9 Hypothyroidism, unspecified
CPT/HCPCS: 81025; 20600; J1030; J2795

== ENCOUNTER → 2021-04-16 | Outpatient (CLI) | payer BC ==
--- NOTE | 2021-04-18 11:04 | MM ---
Reason for exam: screening (asymptomatic). Last mammogram was performed 1 year ago. History: Patient had first child at age 37. Family history of breast cancer in aunt at age 60. Left U/S Cancelled VAD Biopsy of both breasts, June 09, 2013. Cyst aspiration, May 2012. Benign cyst aspiration of the left breast, March 2012. Benign cyst aspiration of the left breast, May 2011. Physical Findings: A clinical breast exam by your physician is recommended on an annual basis and results should be correlated with mammographic findings. MG 3D Screening Mammo W/Cad Bilateral CC and MLO view(s) were taken. Prior study comparison: April 15, 2020, bilateral MG 3d screening mammo w/cad. February 23, 2019, bilateral MG 3d screening mammo w/cad. The breast tissue is extremely dense which could obscure a lesion on mammography. Bilateral asymmetries waxing and waning consistent with cystic changes. Scattered calcifications. No change. ASSESSMENT: Benign, BI-RAD 2 RECOMMENDATION: Routine screening mammogram of both breasts in 1 year.
== END | disposition home or self-care (01) ==
LOC: RADMAMWWP 07:09
PROVIDERS: ATTEND Obstetrics & Gynecology
DX: Z12.31 Encounter for screening mammogram for malignant neoplasm of breast (principal); Z80.3 Family history of malignant neoplasm of breast
CPT/HCPCS: 77063; 77067

== ENCOUNTER → 2023-01-12 | Outpatient (CLI) | payer OTHER ==
--- NOTE | 2023-01-12 13:00 | XR ---
EXAMINATION TYPE: XR wrist complete LT DATE OF EXAM: 01/12/2023 12:52 PM INDICATION: Patient age:Female; 57 years old; Reason for study: S63.502A, S70.01XA; [facility]. COMPARISON: None TECHNIQUE: 4 views of the left wrist. Frontal, navicular, lateral, and oblique. FINDINGS: Acute nondisplaced comminuted fracture of the distal radius with suspected intra-articular radiocarpal joint extension. There is associated soft tissue edema. No dislocation. IMPRESSION: Acute nondisplaced comminuted fracture of the distal radius with suspected intra-articular extension.
--- NOTE | 2023-01-12 13:01 | XR ---
EXAMINATION TYPE: XR Hip Complete RT DATE OF EXAM: 01/12/2023 12:51 PM INDICATION: Patient age:Female; 57 years old; Reason for study: S63.502A, S70.01XA; [facility]. COMPARISON: Pelvic radiograph the same date. TECHNIQUE: The right hip was examined in the frontal and lateral projections . FINDINGS: No evidence of any acute osseous pathology, joint dislocation, or soft tissue swelling. IMPRESSION: No acute osseous pathology.
--- NOTE | 2023-01-12 13:01 | XR ---
EXAMINATION TYPE: XR pelvis AP view DATE OF EXAM: 01/12/2023 12:52 PM INDICATION: Patient age:Female; 57 years old; Reason for study: S63.502A, S70.01XA; [facility]. COMPARISON: None TECHNIQUE: The pelvis was examined in a single projection. FINDINGS: There is no evidence of fracture or dislocation. There is no soft tissue abnormality. No a bnormal calcifications are present. Multilevel degenerative changes of the lower spine. IMPRESSION: No acute osseous pathology.
== END | disposition home or self-care (01) ==
LOC: RADXRMAIN 12:07
PROVIDERS: ATTEND Emergency Medicine
DX: S63.502A Unspecified sprain of left wrist, initial encounter (principal); S70.01XA Contusion of right hip, initial encounter
CPT/HCPCS: 72170; 73502